=== PATIENT | male | born 1975 | race Hispanic/Latino ===

== ENCOUNTER 2023-02-06 12:53 | Observation (INO) | payer BC ==
[~2023-02-06] VITALS: Ht 180.3 cm; Wt 100.7 kg
[2023-02-06] MEDS ORDERED: LIDOCAINE HCL 400MG/20ML VIAL ONE (15:37)
[2023-02-06] MEDS ORDERED: FENTANYL CITRATE PF 50 MCG/1 ML 2ML VIAL ONE (15:38)
[2023-02-06] MEDS ORDERED: IOHEXOL-350 75 ML VIAL IV ONE (15:38)
[2023-02-06] MEDS ORDERED: MIDAZOLAM HCL 1 MG/ML 2ML VIAL ONE (15:38)
[2023-02-06] MEDS ORDERED: HEPARIN 10,000 UNIT/10ML (1,000 UNIT/ML) VIAL ONE (15:39)
[2023-02-06] MEDS ORDERED: VERAPAMIL HCL 2.5 MG/ML VIAL ONE (15:39)
[2023-02-06] MEDS ORDERED: NITROGLYCERIN 50MG VIAL ONE (15:40)
[2023-02-06] MEDS ORDERED: EPTIFIBATIDE 2 MG/ML 10 ML VIAL IVP ONE ×2 (16:46→16:53)
[2023-02-06] MEDS ORDERED: EPTIFIBATIDE 75MG/100ML BOTTLE 100 ML IV ONE (16:46)
[2023-02-06] MEDS ORDERED: TICAGRELOR 90 MG TABLET ONE (16:46)
[2023-02-06] MEDS ORDERED: DEXTROSE 50%-WATER 50 ML DISP.SYRIN IV PRN (17:30)
[2023-02-06] MEDS ORDERED: GLUCAGON 1MG KIT 1 MG ML IM PRN (17:30)
[2023-02-06 18:00] VITALS: BP 124/74
[2023-02-06 18:15] VITALS: BP 129/82
[2023-02-06 18:30] VITALS: BP 139/93
[2023-02-06 18:45] VITALS: BP 136/94
[2023-02-06 19:15] VITALS: BP 125/85
[2023-02-06] MEDS ORDERED: METOPROLOL TARTRATE 25 MG TAB PO SCH (21:00)
[2023-02-06] MEDS ORDERED: ATORVASTATIN 40 MG TABLET PO SCH (21:00)
[2023-02-06] MEDS: TICAGRELOR 90 MG TABLET PO SCH (21:27)
[2023-02-06] MEDS ORDERED: ACETAMINOPHEN WITH CODEINE 1 TAB TAB PO PRN (22:30)
[2023-02-06] MEDS ORDERED: MORPHINE 2 MG SYG IVP PRN (22:30)
[2023-02-06] MEDS ORDERED: ONDANSETRON ODT 4MG TAB SL PRN (22:30)
[2023-02-06] MEDS ORDERED: ACETAMINOPHEN 325 MG TAB PO PRN (22:30)
[2023-02-06] MEDS ORDERED: ZOLPIDEM TARTRATE 5 MG TAB PO PRN (22:30)
[2023-02-07 03:53] VITALS: BP 108/72
[2023-02-07 03:56] LABS: HEMATOCRIT 32.1 % (42-54); MEAN CORPUSCULAR HGB CONC 32.4 g/dL (32.0-36.0); MEAN CORPUSCULAR VOLUME 86.3 fL (79-99); RED BLOOD CELL COUNT(AUTO) 3.72 MIL/uL (4.50-6.20); RED CELL DISTRIBUTION WIDTH 13.5 % (11.0-15.5); WHITE BLOOD COUNT (AUTO) 10.6 K/uL (4.8-10.8)
[2023-02-07 07:10] VITALS: BP 114/69
[2023-02-07] MEDS: INSULIN HUMULIN R 100 UNIT/ML 3ML SQ SCH ×3 (07:19→11:33)
[2023-02-07] MEDS ORDERED: METOPROLOL SUCCINATE 25 MG TAB.SR.24H PO ONE (08:50)
[2023-02-07] MEDS: TICAGRELOR 90 MG TABLET PO SCH (08:52)
[2023-02-07] MEDS ORDERED: ASPIRIN 81MG CHEW TAB PO SCH (09:00)
[2023-02-07] MEDS ORDERED: METOPROLOL SUCCINATE 25 MG TAB.SR.24H PO SCH (09:00)
[2023-02-07] MEDS: 0.9%NACL 1000ML 1,000 ML IV SCH ×2 (09:58→13:19)
[2023-02-07 11:18] VITALS: BP_SYST 104; BP_SYST 127; BP_DIAS 102; BP_DIAS 64
[2023-02-07] MEDS ORDERED: ATOR40TA69 PO (14:19)
[2023-02-07] MEDS ORDERED: TICA90TA PO (14:19)
[2023-02-07] MEDS ORDERED: ASPI-1005 PO (14:19)
[2023-02-07] MEDS ORDERED: METO25TA3 PO (14:19)
== END 2023-02-07 16:00 | disposition home or self-care (01) ==
LOC: INTOOBSV 15:54 → 2DH 15:54
PROVIDERS: ADMIT Hospitalist; ATTEND Hospitalist
DX: I21.4 Non-ST elevation (NSTEMI) myocardial infarction (principal); I10 Essential (primary) hypertension; E11.65 Type 2 diabetes mellitus with hyperglycemia; E66.9 Obesity, unspecified; E78.5 Hyperlipidemia, unspecified; F17.290 Nicotine dependence, other tobacco product, uncomplicated; Z68.31 Body mass index [BMI] 31.0-31.9, adult; Z79.4 Long term (current) use of insulin; Z79.899 Other long term (current) drug therapy
CPT/HCPCS: 92978; 93458; 85347 ×2; 82948 ×4; 96372; 83036; 80061; 80048; 85027; 36415; C1769 ×3; C1894; A4649; C1887; C1753; C1874; C1725 ×2; J3010; J3490 ×3; J1644 ×2; J2250; J1327 ×3; Q9967; C9600; G0378 ×2; J1815; 99156; 99157